=== PATIENT | male | born 1960 | race Caucasian/White ===

== ENCOUNTER 2025-01-05 13:27 | Inpatient (IN) | payer OTHER ==
[~2025-01-05] VITALS: Ht 177.8 cm; Wt 82.0 kg
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
[2025-01-05 14:18] LABS: Basophils # (auto) 0 10 ^3/uL (0-0.2); Basophils % (auto) 0.1 % (0.0-2.0); Eosinophils # (auto) 0 10 ^3/uL (0-0.8); Hematocrit 40.3 % (41.0-53.0); Hemoglobin 14.1 g/dL (13.5-17.5); Lymphocytes # (auto) 0.6 10 ^3/uL (0.4-5.4); Lymphocytes % (auto) 7.9 % (10.0-50.0); Mean Corpuscular Hemoglobin 29.5 pg (28.0-32.0); Mean Corpuscular Hgb Conc. 35.1 g/dL (32.0-36.0); Monocytes # (auto) 0.5 10 ^3/uL (0-1.3); Monocytes % (auto) 7.2 % (0.0-12.0); Neutrophils # (auto) 6.2 10 ^3/uL (1.6-8.6); Neutrophils % (auto) 84.8 % (37.0-80.0); Platelet Count (auto) 223 10^3/uL (140-450); Red Cell Distribution Width 13.9 % (11.8-14.3); White Blood Cell 7.4 10^3/uL (4.4-10.8)
[2025-01-05 14:26] LABS: Anion Gap 12 (5-15); Calcium 10.4 mg/dL (8.7-10.4); Carbon Dioxide 23 mmol/L (20-31)
[2025-01-05 14:27] LABS: Chloride 97 mmol/L (98-107); Potassium 2.9 mmol/L (3.5-5.1); Sodium 132 mmol/L (136-145)
[2025-01-05 14:31] LABS: BUN/Creatinine Ratio 11.1 (10.0-20.0); Blood Urea Nitrogen 10 mg/dL (9-23); Glucose 102 mg/dL (74-106)
--- NOTE | 2025-01-05 15:18 | DVH ---
CLINICAL HISTORY: r/o dvt TECHNIQUE: Color and duplex doppler imaging of the left lower extremity veins was performed. Vessel c ompression if possible was also performed. WID: COMPARISON: None FINDINGS: Left external iliac veins: Normal flow and phasicity. Left common femoral vein: Normal compressibility and flow. Left femoral vein: Distal superficial femoral vein is not visualized. Noncompressible proximal and m id superficial femoral vein with peripheral echogenic thrombus Left popliteal vein: Noncompressible popliteal vein with peripheral echogenic thrombus. Proximal calf veins are normally compressible. IMPRESSION: Noncompressible superficial femoral vein in the proximal mid aspect in the left popliteal vein which could be due to chronic thrombus.
[2025-01-05] MEDS ORDERED: MORPHINE SULFATE INJ 2 MG/ml SYRG IV ONE (15:45)
[2025-01-05 16:14] VITALS: PULSE 59; RESP 16; O2SAT 98
[2025-01-05] MEDS: MORPHINE SULFATE 4 MG/ML SYR/VIAL IV ONE (16:14)
[2025-01-05] MEDS: fentaNYL CITRATE 100 MCG/2 ML VL IM ONE (16:21)
[2025-01-05] MEDS: POTASSIUM CHL 20 Meq TABLET PO ONE (16:39)
[2025-01-05] MEDS: cloNIDine HCL 0.1 MG TAB PO ONE (17:58)
[2025-01-05 23:22] LABS: Basophils # (auto) 0 10 ^3/uL (0-0.2); Basophils % (auto) 0.2 % (0.0-2.0); Eosinophils # (auto) 0 10 ^3/uL (0-0.8); Lymphocytes # (auto) 0.8 10 ^3/uL (0.4-5.4); Lymphocytes % (auto) 8.3 % (10.0-50.0); Mean Corpuscular Hemoglobin 29.6 pg (28.0-32.0); Mean Corpuscular Hgb Conc. 34.9 g/dL (32.0-36.0); Mean Corpuscular Volume 84.7 fL (80.0-100.0); Monocytes # (auto) 0.8 10 ^3/uL (0-1.3); Monocytes % (auto) 8.6 % (0.0-12.0); Neutrophils # (auto) 7.8 10 ^3/uL (1.6-8.6); Neutrophils % (auto) 82.9 % (37.0-80.0); Nucleated Red Blood Cells % 0.1 %; Platelet Count (auto) 224 10^3/uL (140-450); Red Blood Cells 4.72 10^6/uL (4.5-5.90); Red Cell Distribution Width 13.7 % (11.8-14.3); White Blood Cell 9.4 10^3/uL (4.4-10.8)
[2025-01-05] MEDS ORDERED: VANCOMYCIN PER PHARMACY 0 MG IV SCH (23:30)
[2025-01-05] MEDS: ENOXAPARIN SOD 100 MG/1 ML SYRINGE SC ONE (23:33)
[2025-01-05] MEDS: TAMSULOSIN HYDROCHLORIDE 0.4 MG CAP PO ONE (23:33)
[2025-01-05 23:37] LABS: INR 1.08 (0.9-1.15); Prothrombin Time 11.4 sec (9.3-11.8)
[2025-01-05 23:40] LABS: Alanine Aminotransferase 14 U/L (7-40); Albumin 4.7 g/dL (3.2-4.8); Alkaline Phosphatase 89 U/L (46-116); Anion Gap 10 (5-15); Aspartate Aminotransferase 22 U/L (<34); BUN/Creatinine Ratio 12.6 (10.0-20.0); Bilirubin, Total 0.8 mg/dL (0.2-1.0); Blood Urea Nitrogen 13 mg/dL (9-23); Calcium 9.9 mg/dL (8.7-10.4); Carbon Dioxide 26 mmol/L (20-31); Chloride 98 mmol/L (98-107); Potassium 3.8 mmol/L (3.5-5.1); Total Protein 7.7 g/dL (5.7-8.2)
[2025-01-05 23:49] LABS: Glucose 106 mg/dL (74-106); Sodium 134 mmol/L (136-145)
[2025-01-06] VITALS (7 sets, daily range): BP systolic 112–136; BP diastolic 64–83; PULSE 50–67; RESP 16–18; TEMP 97.5–97.9; O2SAT 96–100
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
[2025-01-06 00:46] LABS: Erythrocyte Sedimentation Rate 20 mm/hr (0-20)
[2025-01-06] MEDS: cefTRIAXone 1GM/50ML D5W 50 ML IV ONE (01:22)
[2025-01-06] MEDS: IBUPROFEN 600 MG TAB PO PRN (01:26)
--- NOTE | 2025-01-06 01:35 | DVH ---
INDICATION: left ankle wound, r/o osteomyelitis COMPARISON: None TECHNIQUE: CT of the left foot was performed without contrast. Volume transverse images were obtained and reconstructed in multiple planes using bone and soft tissue algorithms. Radiation Dose Information: CT Dose: CTDI volume is 7.75 mGy. Dose-length product is 232.66 mGy*cm FINDINGS: Moderate soft tissue irregularity consistent with ulceration overlying the medial malleolus with subj acent increased soft tissue density, swelling and edema. No discrete organized fluid collection to humphrey ggest abscess formation. Mild diffuse phlegmonous change may be present. No definite radiographic evidence of osteomyelitis. The alignment is normal. The joint spaces are within normal limits. There is no fracture, dislocation or aggressive osseous lesion. Plantar calcaneal enthesopathy. There is no joint effusion. IMPRESSION: 1. Ulceration of the soft tissues overlying the medial malleolus with subjacent soft tissue swelling, edema and probable diffuse phlegmonous change. No discrete organized fluid collection to suggest abs cess formation at this time. No definite radiographic evidence of osteomyelitis. 2. All CT scans at this medical facility are performed using dose modulation techniques as appropriat e to a performed exam including the following: Automated exposure control was utilized; adjustment of the MA and/or KV according to patient size; and use of iterative reconstruction technique.
[2025-01-06] MEDS: SODIUM CHLORIDE 0.9% 1,000 ML IV ONE (02:18)
[2025-01-06 05:42] LABS: Urine Bacteria None Seen /hpf (None Seen)
[2025-01-06 05:58] LABS: Urine Blood Negative /uL (Negative); Urine Clarity Clear (Clear); Urine Color Yellow (Yellow); Urine Protein, UAD 1+ (Negative); Urine Specific Gravity 1.015 (1.001-1.035); Urine Squamous Epithelial Cell None Seen /hpf (<5); Urine Urobilinogen Normal (Negative); Urine WBC < 1 /HPF (0-3)
[2025-01-06] MEDS: HYDROcodone-ACET 7.5/325MG TAB PO PRN (06:30)
[2025-01-06] MEDS: PANTOPRAZOLE 40 MG TAB PO SCH (06:30)
[2025-01-06] MEDS: cefTRIAXone 1GM/50ML D5W 50 ML IV SCH (08:41)
--- NOTE | 2025-01-06 09:01 | DVH ---
Bilateral Lower Extremity Arterial Duplex Clinical History: B/l diminished dorsalis pedis pulse Comparison: None Technique: Duplex Doppler evaluation including color Doppler and spectral/pulsed waveform analysis of the lower extremity arteries was performed. Findings: RIGHT: Peak systolic velocities are as follows: [employer] 108 cm/s Deep femoral 118 cm/s SFA proximal 92 cm/s SFA mid-portion 93 cm/s SFA distal 95 cm/s Popliteal 80 cm/s Posterior tibial 57 cm/s Anterior tibial 56 cm/s Peroneal nv cm/s Dorsalis pedis 56 cm/s The waveforms are triphasic with diastolic flow. LEFT: Peak systolic velocities are as follows: [employer] 122 cm/s Deep femoral 55 cm/s SFA proximal 85 cm/s SFA mid-portion 100 cm/s SFA distal 120 cm/s Popliteal 59 cm/s Posterior tibial 92 cm/s Anterior tibial 77 cm/s Peroneal nv cm/s Dorsalis pedis 77 cm/s The waveforms are triphasic with diastolic flow. IMPRESSION: No hemodynamically significant stenosis based on peak systolic velocity criteria. REFERENCE VALUES, [facility] ([facility]) vascular Imaging Lab Criteria: Peak systolic velocity rang es (in cm/sec) are as follows: <150 cm/s - <20 % stenosis 150-200 cm/s - 20-49% stenosis 200-300 cm/s - 50-75% stenosis >300 cm/s -> 75% stenosis
[2025-01-06 10:21] LABS: Amphetamine Screen, Urine Neg (NEGATIVE); Barbiturate Scree,Urine Neg (NEGATIVE); Benzodiazephine Screen, Urine Neg (NEGATIVE); Cannabinoid Screen, Urine Neg (NEGATIVE); Cocaine Screen, Urine Neg (NEGATIVE); Opiate Scree,Urine Neg (NEGATIVE); Phencyclidine Screen, Urine Neg (NEGATIVE)
[2025-01-06] MEDS: ENOXAPARIN SOD 100 MG/1 ML SYRINGE SC SCH (10:52)
[2025-01-06] MEDS: amLODIPine BESYLATE 5 MG TAB PO SCH (10:52)
[2025-01-06] MEDS: VANCOMYCIN 1GM/250ML KIT 250 ML IV SCH (13:05)
[2025-01-06] MEDS ORDERED: APIX5TAB PO (13:26)
[2025-01-06] MEDS ORDERED: LISI20TA56 PO (13:26)
[2025-01-06] MEDS ORDERED: HYDR1TAB97 PO (13:26)
[2025-01-06] MEDS ORDERED: AMLO1TAB22 PO (13:26)
[2025-01-06] MEDS ORDERED: ATOR20TA50 PO (13:26)
[2025-01-06] MEDS ORDERED: HYDR25TA4 PO (13:26)
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
--- NOTE | 2025-01-06 13:59 | DVH ---
CLINICAL HISTORY: Infection. Possible osteomyelitis. TECHNIQUE: Multi sequence multi planar MRI images of the left foot were obtained without IV contrast . COMPARISON: CT CT L FOOT WO CONTRAST on DOS: 01/05/25 FINDINGS: There is a wound of the medial aspect of the hindfoot, caudal and posterior to the medial malleolus, measuring up to 2 cm in greatest dimension. There are adjacent areas of subcutaneous edema , possible cellulitis in the appropriate clinical setting. No organized fluid collection identified t o suggest abscess. No evidence for osteomyelitis. Visualized tendons appear intact. Minimal edema adj acent to the plantar fascia. IMPRESSION: Wound at the medial aspect of the hindfoot with adjacent soft tissue inflammatory changes, possible cellulitis in the appropriate clinical setting. No MRI evidence for abscess or osteomyelitis.
[2025-01-06] MEDS: TAMSULOSIN HYDROCHLORIDE 0.4 MG CAP PO SCH (17:22)
[2025-01-06] MEDS: MUPIROCIN 2% OINT 15gm or 22gm TOP ONE (17:23)
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
[2025-01-06] MEDS: MUPIROCIN 2% OINT 15gm or 22gm TOP SCH (21:03)
[2025-01-07] VITALS (7 sets, daily range): BP systolic 126–142; BP diastolic 75–93; PULSE 53–79; RESP 17–20; TEMP 97.7–98.6; O2SAT 94–99
[2025-01-07] MEDS ORDERED: MORPHINE SULFATE INJ 2 MG/ml SYRG IV ONE (00:45)
[2025-01-07] MEDS: VANCOMYCIN 1GM/200ML PM 200 ML IV SCH (01:39)
[2025-01-07] MEDS: MELATONIN 5 MG TAB PO ONE (01:40)
[2025-01-07] MEDS: MORPHINE SULFATE 4 MG/ML SYR/VIAL IV ONE (01:40)
[2025-01-07 07:16] LABS: Potassium 3.6 mmol/L (3.5-5.1); Sodium 141 mmol/L (136-145)
[2025-01-07 07:17] LABS: Anion Gap 7 (5-15); Carbon Dioxide 26 mmol/L (20-31); Chloride 108 mmol/L (98-107)
[2025-01-07 07:18] LABS: Calcium 9.5 mg/dL (8.7-10.4)
[2025-01-07 07:22] LABS: Glucose 87 mg/dL (74-106)
[2025-01-07 07:23] LABS: BUN/Creatinine Ratio 16.7 (10.0-20.0); Blood Urea Nitrogen 14 mg/dL (9-23)
[2025-01-07 08:12] LABS: Basophils # (auto) 0 10 ^3/uL (0-0.2); Basophils % (auto) 0.6 % (0.0-2.0); Eosinophils # (auto) 0 10 ^3/uL (0-0.8); Eosinophils % (auto) 0.6 % (0.0-7.0); Hemoglobin 12.3 g/dL (13.5-17.5); Lymphocytes # (auto) 0.7 10 ^3/uL (0.4-5.4); Lymphocytes % (auto) 14.3 % (10.0-50.0); Mean Corpuscular Hemoglobin 30.2 pg (28.0-32.0); Mean Corpuscular Hgb Conc. 35.2 g/dL (32.0-36.0); Mean Corpuscular Volume 85.7 fL (80.0-100.0); Monocytes # (auto) 0.6 10 ^3/uL (0-1.3); Monocytes % (auto) 12.1 % (0.0-12.0); Neutrophils # (auto) 3.5 10 ^3/uL (1.6-8.6); Neutrophils % (auto) 72.4 % (37.0-80.0); Nucleated Red Blood Cells % 0.1 %; Platelet Count (auto) 148 10^3/uL (140-450); Red Blood Cells 4.08 10^6/uL (4.5-5.90); Red Cell Distribution Width 13.7 % (11.8-14.3); White Blood Cell 4.8 10^3/uL (4.4-10.8)
[2025-01-07] MEDS ORDERED: BACDST PO (15:03)
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
[2025-01-07] MEDS ORDERED: AUG875T PO (15:30)
[2025-01-07] MEDS ORDERED: MELATONIN 5 MG TAB PO SCH (22:00)
--- NOTE | 2025-01-08 18:47 | DVHSR ---
APPROVED REPORT EXAM: Two-dimensional and M-mode echocardiogram with Doppler and color Doppler. Blood Pressure: 124/64 mmHg INDICATION Hypertension RISK FACTORS Height: 5'10", Weight: 173 DIMENSIONS LVDd5.0 (3.8-5.7cm)LA (2D)5.3 (1.9-4.0cm)Aortic Root3.3 (2.0-3.7cm) LVDs3.4 (2.5-4.0cm)LA (MM) (1.9-4.0cm)Aortic Cusp Exc2.3 (1.5-2.0cm) EF (%) 60.0 (55-70%)Rt. Atrium4.3 (1.9-4.0cm)Asc. Aorta cm IVSd1.1 (0.7-1.1cm)RV (D)4.0 (1.8-2.4cm) PWd0.7 (0.7-1.1cm) Mitral Valve MitralMitral Stenosis E wave0.95m/sMV Mean GR.mmHg A wave0.99m/sMV Peak GR.mmHg E/A ratio1.02D MVAcm2 DECEL [id number] 1/2 Tim[place] Aortic Valve Aortic ValveAortic Stenosis V11.12m/Loyd Mean GR.4mmHg V21.25m/Loyd Peak GR.6mmHg LVOT Diameter2.5 (1.8-2.4cm)Doppler AVA4.40cm2 Pulmonic Valve V20.76m/s Tricuspid Valve TR Velocity2.59m/s [id number] Conclusion Sinus rhythm. Biatrial enlargement with RV enlargement. Aortic root enlargement. Mild mitral annular calcification. EF of 55-60% with normal RV function. Dopplers unremarkable. No pericardial effusion masses or vegetations.
== END 2025-01-07 19:24 | disposition home or self-care (01) | DRG 300 ==
LOC: EDBD 13:27 → ER 13:27 → OVERFLOW 22:25 → WEST WING 22:32
PROVIDERS: ADMIT Student in an Organized Health Care Education/Training Program; ATTEND Student in an Organized Health Care Education/Training Program
DX: I83.023 Varicose veins of left lower extremity with ulcer of ankle (principal); L97.329 Non-pressure chronic ulcer of left ankle with unspecified severity; I87.2 Venous insufficiency (chronic) (peripheral); I16.0 Hypertensive urgency; I11.9 Hypertensive heart disease without heart failure; E87.6 Hypokalemia; F17.210 Nicotine dependence, cigarettes, uncomplicated; Z88.1 Allergy status to other antibiotic agents; Z85.46 Personal history of malignant neoplasm of prostate; Z92.3 Personal history of irradiation; Z86.718 Personal history of other venous thrombosis and embolism; Z79.899 Other long term (current) drug therapy
CPT/HCPCS: 36415; 73700; 73718; 80048; 80053; 80202; 80307; 81001; 82565; 83605; 85025; 85610; 85652; 85730; 86141; 87040; 87081; 87205; 93306; 93925; 93971; 96372; G0378